=== PATIENT | female | born 1990 | race Caucasian/White ===

== ENCOUNTER 2017-05-25 15:04 | Day surgery (SDC) | payer SELFPAY ==
--- NOTE | 2017-05-27 14:00 | Operative Note ---
DATE OF SURGERY: 05/25/2017 PREOPERATIVE DIAGNOSIS: Hematuria. POSTOPERATIVE DIAGNOSIS: Hematuria. OPERATION: Cystoscopy. Anesthesia: Local. Indication: A 27-year-old female initially seen for gross hematuria and pelvic and vaginal pain. She completed a CT scan, which was unremarkable, and presents for cystoscopy to complete the evaluation today. PROCEDURE: Preoperative informed consent was obtained. Antibiotics were given. Patient was brought to the procedure room at [facility] and placed in frog leg position. The genitalia were prepped and draped sterilely, and flexible cystoscopy was performed. The urethra appeared unremarkable. The bladder was inspected systematically. No abnormalities were seen, and the ureteral orifices had normal appearance and positioning. The scope was then removed and procedure was terminated. The patient tolerated the procedure quite well. DISCHARGE INSTRUCTIONS: Patient's workup is complete. No abnormality was found. Her symptoms have resolved, and she was instructed to follow up for any changes moving forward. CC: Dr. Kinza SAL
== END 2017-05-25 15:56 | disposition home or self-care (01) ==
LOC: HOP 15:04
PROVIDERS: ATTEND Urology
DX: R31.9 Hematuria, unspecified (principal)